=== PATIENT | female | born 1970 | race Native Hawaiian/Other Pacific Islander ===

== ENCOUNTER 2016-11-15 01:26 | Emergency (ER) | payer BC ==
[~2016-11-15] VITALS: Ht 154.9 cm; Wt 81.6 kg
[2016-11-15] MEDS ORDERED: ALPR0.5T24 PO (01:39)
[2016-11-15] MEDS ORDERED: LORTAB 5-325 MG1 TAB PO (01:39)
[2016-11-15] MEDS ORDERED: GABA300C2 PO (01:40)
[2016-11-15] MEDS ORDERED: OMEPRAZOLE20 M1 PO (01:41)
[2016-11-15 02:28] VITALS: BP 139/85; TEMP 98.1
== END 2016-11-15 02:31 | disposition home or self-care (01) ==
LOC: ED 01:26
DX: K52.9 Noninfective gastroenteritis and colitis, unspecified (principal); K21.9 Gastro-esophageal reflux disease without esophagitis; R19.7 Diarrhea, unspecified; R11.2 Nausea with vomiting, unspecified; R10.9 Unspecified abdominal pain
CPT/HCPCS: 99282